=== PATIENT | female | born 1980 | race Caucasian/White ===

== ENCOUNTER 2017-01-01 05:50 | Day surgery (SDC) | payer OTHER ==
[2016-12-29 15:49] VITALS: BMI 34.0
[~2017-01-01] VITALS: Ht 162.6 cm; Wt 93.4 kg
[~2017-01-01 05:50] MED LIST: CEFAZOLIN 2 GM/50 ML (PMX) 50 ML IVPB ONE; LACTATED RINGER'S 1,000 ML IV* SCH
[2017-01-01] MEDS ORDERED: BUPIVACAINE 0.25%/EPI (SDV) 30 ML INJ ONE (06:51)
[2017-01-01 07:06] VITALS: Ht 162.6 cm; Wt 93.4 kg
[2017-01-01] MEDS ORDERED: MOME13HF2 INHALATION (07:06)
[2017-01-01 07:09] VITALS: BP 125/78; PULSE 69; RESP 18
--- NOTE | 2017-01-01 07:19 | RADRPT ---
PROCEDURE: XR Chest. CLINICAL INDICATION: Preop TECHNIQUE: A single AP view of the chest was obtained. COMPARISON: None. FINDINGS: No focal airspace opacification, pleural effusion or pneumothorax is seen. The cardiomediastinal si lhouette is within normal limits for size. The osseous structures are unremarkable. IMPRESSION: No radiographic evidence of acute cardiopulmonary disease. RPTAT: HH .Trixie Cortez MD, MD Date Time Electronically viewed and signed by .Trixie Cortez MD, on 01/01/2017 07:19 .G/
--- NOTE | 2017-01-03 19:03 | RADRPT ---
Vent Rate: 63 bpm RR Interval: 0 msec SC Interval: 134 msec QRS Duration: 84 msec QT Interval: 406 msec QTC Interval: 415 msec P-R-T Mason: 25 - 30 - 32 degrees Normal sinus rhythm Normal ECG Electronically Signed By: Goyo [email or web address] [id number]
== END 2017-01-01 07:30 | disposition home or self-care (01) ==
LOC: SDS 05:50
PROVIDERS: ATTEND Specialist
DX: Z30.2 Encounter for sterilization (principal); Z53.9 Procedure and treatment not carried out, unspecified reason
CPT/HCPCS: 71010; 93005; Z7610